=== PATIENT | female | born 1975 | race American Indian/Alaskan Native ===

== ENCOUNTER 2019-05-08 18:52 | Emergency (ER) | payer OTHER, SELFPAY ==
[2019-05-08 19:10] VITALS: BP 142/86; PULSE 61; TEMP 36.8; O2SAT 99; BMI 43.5
--- NOTE | 2019-05-08 19:18 | DI.RAD.S_ITS ---
PROCEDURE: XR FOOT LT MIN 3V INDICATIONS: right heel injury 1 month ago, increasing pain/redness TECHNIQUE: 3 views of the foot were acquired. COMPARISON: None. FINDINGS: Bones: No acute fractures or dislocations. There is an old healed fifth metatarsal neck fracture. No suspicious bony lesions. Mild degenerative joint disease at the talonavicular joint and navicular cuneiform joint. Calcaneal spurring. Soft tissues: No tibiotalar joint effusion. Achilles tendon appears normal. IMPRESSION: 1. No fracture or dislocation. 2. Old healed fifth metatarsal neck fracture. 3. Mild degenerative joint disease and calcaneal spurring. Dictated by: Sahil Chapa M.D. on 05/08/2019 at 20:01 Approved by: Sahil Chapa M.D. on 05/08/2019 at 20:03
--- NOTE | 2019-05-08 20:24 | ED_ITS ---
HPI - Extremity Problem General Chief complaint: Extremity Problem,Nontraumatic Stated complaint: R FOOT HEEL PAIN Time Seen by Provider: 05/08/19 20:24 Source: patient Mode of arrival: ambulatory Limitations: no limitations History of Present Illness HPI Narrative: This is a 44-year-old female comes in with complaint of right foot/heel pain. Patient states she has had symptoms on and off for couple weeks. Patient states that she has some is a little bit of swelling that comes and goes but it is not consistent. She has not noticed any new skin changes no redness, no plantar warts, no cuts or abrasions. Patient does have diabetes she does have neuropathy but she states that feels like pins and needles and sort of achy and this feels very different sort of sharp like something is deep in her foot. Patient states that initially was 1st thing the morning and when she would for stand on it but now it is becoming increasingly more frequent. Sort of comes and goes intermittently. Patient states she has not had any new recent trauma or injuries. She has broken her foot before she states twice just while standing. Patient has seen Podiatry, she states she did have an injection she thinks it might have been corticosteroids into the base of her foot for similar symptoms in the past it was very helpful. She has not been back to Podiatry since then. Related Data Home Medications Medication Instructions Recorded Confirmed FERROUS SULFATE 324 mg PO QDAY #0 11/15/16 clonidine HCl 0.2 mg PO HS #0 11/15/16 dextroamphetamine-amphetamine 20 mg PO SEE INSTRUCTIONS #0 11/15/16 [Adderall] gabapentin [Neurontin] 300 mg PO HS #0 11/15/16 loratadine 10 mg PO QDAY #0 11/15/16 metformin [Glucophage XR] 500 mg PO BID #0 11/15/16 Previous Rx's Medication Instructions Recorded gabapentin 300 mg PO TID #30 cap 05/08/19 meloxicam [Mobic] 7.5 mg PO BID #14 tab 05/08/19 Allergies Allergy/AdvReac Type Severity Reaction Status Date / Time lisinopril [LISINOPRIL] Allergy Unknown Verified 05/08/19 19:16 Sulfa (Sulfonamide Allergy Unknown Verified 05/08/19 19:16 Antibiotics) [SULFA (SULFONAMIDE ANTIBIOTICS)] tetracycline [TETRACYCLINE] Allergy Unknown Verified 05/08/19 19:16 Review of Systems Review of Systems ROS Unobtainable: All systems reviewed & are unremarkable except as noted in HPI and below Constitutional Constitutional: Denies fever(s) Musculoskeletal Musculoskeletal: Reports as per HPI, Denies arthralgias, Denies limited range of motion, Denies muscle weakness, Denies numbness, Reports tingling and Reports other (foot pain, swelling intermittent. ) Neurologic Neurologic: Denies numbness and Reports tingling [facility] Social History Smoking Status: Never smoker Exam Narrative Exam Narrative: GENERAL: Alert and oriented x three, obese, well-appearing female in mild distress HEENT: Head normocephalic, atraumatic, EOMI, pupils reactive, face symmetric, moist mucous membranes NECK: Supple, full range of motion EXTREMITIES: Normal range of motion, no clubbing, no appreciable swelling noted. Neurovascularly intact. patient does not have any bony tenderness. Patient does have any obvious swelling when comparing her feet. Patients feet are pronated bilaterally, she is tender to palpation over the heel of the right foot. No erythema, skin color changes, or lacerations, plantar warts or other c hanges noted. patient does not have any bony tenderness with palpation. she has 2+ pulses bilaterally. She has sensation to light touch throughout both feet. NEUROLOGICAL: Cranial nerves II through XII grossly intact. Moving all extremities SKIN: Warm, dry, no petechiae, no rashes or lesions. Initial Vital Signs Initial Vital Signs: Vital Signs Temperature 98.3 F 05/08/19 19:10 Pulse Rate 61 05/08/19 19:10 Blood Pressure 142/86 H 05/08/19 19:10 Pulse Oximetry 99 05/08/19 19:10 Course Orders Ordered: ED Orders 05/08/19 19:18 XR foot LT min 3V Stat Vital Signs Vital signs: Vital Signs - 8 hr 05/08/19 21:00 Pulse Rate 55 L Respiratory Rate 16 Blood Pressure [Left Arm] 138/96 H Pulse Oximetry 100 MDM - Extremity (Nontraumatic) Imaging Data foot left xray: Radiologist's impression: [address] [address] XRay Report Signed Patient: Alice Dejesus LMR#: [id number] : 1975Acct:[id number] Age/Sex: 44 / FDate of Service: 05/08/19 Loc: ED Accession Number: [id number] Procedure: XR foot LT min 3V Ordering Provider: Addie Hayes D.O. PROCEDURE: XR FOOT LT MIN 3V INDICATIONS: right heel injury 1 month ago, increasing pain/redness TECHNIQUE: 3 views of the foot were acquired. COMPARISON: None. FINDINGS: Bones: No acute fractures or dislocations. There is an old healed fifth metatarsal neck fracture. No suspicious bony lesions. Mild degenerative joint disease at the talonavicular joint and navicular cuneiform joint. Calcaneal spurring. Soft tissues: No tibiotalar joint effusion. Achilles tendon appears normal. IMPRESSION: 1. No fracture or dislocation. 2. Old healed fifth metatarsal neck fracture. 3. Mild degenerative joint disease and calcaneal spurring. Dictated by: Sahil Chapa M.D. on 05/08/2019 at 20:01 Approved by: Sahil Chapa M.D. on 05/08/2019 at 20:03 [facility] Narrative Medical decision making narrative: Patient has not new traumatic changes, patient has no signs of infection, plantar warts work other causes of pain. Possibly plantar fasciatis, early Charcot foot or neuroma/cyst, patient has had similar symptoms in past had what is described as steroid shot into foot in the past and had relief with podiatry. discussed follow up with podiatry for additional options for treatment. Patient has crutches at home. Discharge Plan Departure Patient Disposition: Home Clinical Impression: Foot pain, right Discharge Date/Time: 05/08/19 21:07 Instructions: DI for Foot Pain Activity Restrictions/Additional Instructions: Follow up with podiatry for recheck and discussion if injection in your foot would be helpful again. You may increase your gabapentin to 300mg every 8 hours as needed. You may continue up to a 1000 mg every 8 hours as needed. You may also take Mobic 1 tablet every 12 hours as needed for pain. Do not take this with ibuprofen. Return to the emergency department for fevers greater 100.4 F, rapidly worsening swelling, pain, new redness or skin changes, new loss of sensation, discoloration such as cyanosis or pallor of her foot or other new or concerning symptoms. Prescriptions: New gabapentin 300 mg capsule 300 mg PO TID Qty: 30 RF: 0 meloxicam [Mobic] 7.5 mg tablet 7.5 mg PO BID Qty: 14 RF: 0 No Action clonidine HCl 0.2 MG tablet 0.2 mg PO HS Qty: 0 RF: 0 metformin [Glucophage XR] 500 MG tablet extended release 24 hr 500 mg PO BID Qty: 0 RF: 0 dextroamphetamine-amphetamine [Adderall] 20 MG tablet 20 mg PO SEE INSTRUCTIONS Qty: 0 RF: 0 gabapentin [Neurontin] 300 MG capsule 300 mg PO HS Qty: 0 RF: 0 loratadine 10 MG tablet 10 mg PO QDAY Qty: 0 RF: 0 FERROUS SULFATE 324 mg PO QDAY Qty: 0 RF: 0 Referrals: Nickie Strong FNP-BC [Primary Care Provider] -
[2019-05-08 21:00] VITALS: BP 138/96; PULSE 55; RESP 16; O2SAT 100
== END 2019-05-08 21:07 | disposition home or self-care (01) ==
PROVIDERS: Emergency Provider Emergency Medicine; PCP Nurse Practitioner Family
DX: M79.671 Pain in right foot (principal)
CPT/HCPCS: 73630; 99282; 99283